=== PATIENT | male | born 1940 | race Caucasian/White ===

== ENCOUNTER 2024-04-04 09:57 | Inpatient (IN) | payer MEDICARE, SELFPAY ==
[2024-04-04] VITALS (20 sets, daily range): BP systolic 82–101; BP diastolic 64–84; PULSE 84–130; RESP 16–26; TEMP 36.2–36.6; O2SAT 90–99; BMI 33.4
--- NOTE | ~2024-04-04 | XR_ITS ---
XR chest 2V DATE: 04/04/2024 10:58 INDICATION: Tachycardia for several days. History of atrial fibrillation in the past. TECHNIQUE: PA and lateral views COMPARISON: None FINDINGS: No pulmonary infiltrate or consolidation is evident. There are some pleural calcifications suggesting prior asbestos exposure. Borderline heart size. Aortic calcification and unfolding. Osteopenia. Probable bilateral rotator cuff atrophy. 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
--- NOTE | 2024-04-04 10:08 | ECG_ITS ---
Test Date: 2024-04-04 10:13:06 Measurements Intervals [place] Rate: 116 P: 0 MT: 0 QRS: 68 QRSD: 126 T: -3 QT: 360 QTc: 501 Interpretive Statements ATRIAL FLUTTER/TACHYCARDIA WITH RAPID VENTRICULAR RESPONSE RIGHT BUNDLE BRANCH BLOCK [120+ ms QRS DURATION, UPRIGHT V1, 40+ ms S IN I/aVL/V4/V5/V6] No previous ECG available for comparison Electronically Signed On 04-05-2024 12:54:56 CDT by Ken Le M.D.
[2024-04-04 10:39] LABS: Basophils Absolute Auto 0.1 K/mm3 (0.0-0.1); Basophils Percent Auto 1.1 % (0.2-1.2); Eosinophils Absolute Auto 0.1 K/mm3 (0-0.3); Eosinophils Percent Auto 1.7 % (0-4.4); Hematocrit 43.9 % (42.0-52.0); Immature Granulocyte Absolute 0.03 K/mm3 (0.00-0.031); Immature Granulocyte Percent A 0.4 % (0-0.5); Lymphocytes Absolute Auto 1.58 K/mm3 (0.9-3.2); Lymphocytes Percent Auto 19.5 % (18.3-44.2); Mean Corpuscular HGB Conc 31.9 g/dl (32-36); Mean Corpuscular Hemoglobin 31.7 pg (26-34); Mean Corpuscular Volume 99.5 fl (80-100); Mean Platelet Volume 10.8 fl (7.4-10.4); Monocytes Absolute Auto 0.6 K/mm3 (0.1-0.6); Monocytes Percent Auto 7.9 % (2.6-8.5); Neutrophils Absolute Auto 5.6 K/mm3 (1.3-6.7); Neutrophils Percent Auto 69.4 % (45.5-73.1); Platelet Count Result 221 k/mm3 (150-375); Red Blood Count 4.41 M/mm3 (4.6-6.20); Red Cell Distribution Width 14.1 % (11.5-14.5); White Blood Count 8.1 K/mm3 (4.5-10.0)
[2024-04-04 10:49] LABS: Alanine Aminotransferase 18 U/L (6-50); Albumin Level 4.1 g/dL (3.5-5.1); Alkaline Phosphatase 61 U/L (38-126); Anion Gap 9 mmol/L (4-12); Aspartate Amino Transferase 24 U/L (17-59); Bilirubin,Total 0.9 mg/dL (0.2-1.3); Blood Urea Nitrogen 19 mg/dL (9-20); Calcium 9.1 mg/dL (8.4-10.2); Carbon Dioxide 24 mmol/L (22-30); Chloride 106 mmol/L (98-107); Estimated CRCL calculation 63 ml/min; Estimated Glomerular Filt Rate > 60; Glucose 111 mg/dL (65-110); Sodium 139 mmol/L (137-145)
[2024-04-04 10:54] LABS: INR 1.4; Prothrombin Time 17.4 Seconds (11.1-14.7)
[2024-04-04 10:55] LABS: Partial Thromboplastin Time 33.4 Seconds (22.3-36.8)
[2024-04-04] MEDS: SODIUM CHLORIDE 0.9% IV 1,000 ML 999 ML IV CONT (10:59)
[2024-04-04 11:12] LABS: NT Pro B Type Natriuretic Pept 1440 pg/mL (19.9-100); Troponin I 0.181 ng/mL (0.000-0.034)
--- NOTE | 2024-04-04 11:19 | ED.ARRPALP ---
HPI - Arrhythmia/Palpitations General Chief Complaint: Arrhythmia/Palpitations Stated Complaint: INCREASED HEART RATE Time Seen by Provider: 04/04/24 10:10 History of Present Illness HPI narrative: patient is an 84-year-old male who presents ER with elevated heart rate for last 2 days. He takes amiodarone for rate control. 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 He has no palpitations or shortness of breath or weakness. His blood pressure typically runs in the mid upper 90s and low 100s. Not typically never higher than 110 mm Hg. He also typically has a heart rate in the 60s. Currently tachy at 1:30 a.m. and irregular. Related Data Home Medications Medication Instructions Recorded Confirmed allopurinol 300 mg tablet 300 mg PO DAILY 04/04/24 04/04/24 amiodarone 200 mg tablet 100 mg PO DAILY 04/04/24 04/04/24 apixaban 5 mg tablet (Eliquis) 5 mg PO Q12H 04/04/24 04/04/24 atorvastatin 20 mg tablet 20 mg PO HS 04/04/24 04/04/24 diazepam 2 mg tablet 2 mg PO DAILY PRN Anxiety 04/04/24 04/04/24 finasteride 5 mg tablet 5 mg PO HS 04/04/24 04/04/24 glucosamine-chondroitin 250 mg-200 1 tablet PO DAILY 04/04/24 04/04/24 mg tablet (Osteo Bi-Flex) metformin 500 mg tablet 500 mg PO HS 04/04/24 04/04/24 spironolactone 25 mg tablet 25 mg PO DAILY 04/04/24 04/04/24 tamsulosin 0.4 mg capsule 0.4 mg PO HS 04/04/24 04/04/24 Allergies Allergy/AdvReac Type Severity Reaction Status Date / Time No Known Allergies Allergy Verified 04/04/24 14:59 Review of Systems Review of Systems: All systems reviewed & are unremarkable except as noted in HPI and below Constitutional: Constitutional: Reports no additional constitutional complaints ENT: Reports system reviewed and no additional complaints, except as documented Cardiovascular: Cardiovascular: Denies chest pain, Reports rapid heart rate, Denies radiating jaw, neck or arm pain and Denies slow heart rate Respiratory: Respiratory: Reports no additional respiratory complaints Gastrointestinal: Gastrointestinal: Reports no additional gastrointestinal complaints Musculoskeletal: Musculoskeletal: Reports no additional musculoskeletal complaints [facility] Past Medical History Medical History (Updated 04/04/24 @ 20:22 by Romie Elkins MD) Benign prostatic hyperplasia Chronic anticoagulation Gout Hyperlipidemia Paroxysmal atrial fibrillation Type 2 diabetes mellitus Family History Family History Other Unknown family medical history Social History Social History (Updated 04/04/24 @ 15:06 by Lottie Mao PA-C) Social History: Surrogate medical decision maker: Graciela Nieto, spouse. Code status: Full code. Smoking packs per day: 2 Smoking cigarettes per day: 40.0 Years smoked: 20 Smoking pack-years: 40.00 Smoking status: Former smoker Tobacco type: cigarettes Smoking end date: 10/21/97 Alcohol intake: never Substance use: never Do You Feel Safe in your Home?: Yes Lack of Transportation: No Lack of Food: Never True Current Housing: I Have Housing Concerned About Future Housing: No Difficulty Paying Gas/Electric Bills: No Difficulty Paying for Meds: No Currently Unemployed: No Education: High School Diploma/GED Difficulty w/ Childcare or Family Care: No Spiritual care concerns: No Exam Narrative: GENERAL: Well-appearing, Obese, and in no acute distress. HEAD: Normocephalic, atraumatic. ENT: Mucous membranes moist. NECK: Supple. CHEST: Clear to auscultation. No respiratory distress. HEART: irregularly irregular rate and rhythm that is tachycardic.. Normal peripheral pulses. ABDOMEN: Soft, nontender, nondistended. EXTREMITIES: Normal range of motion. 2+ edema. SKIN: Warm, dry, no rash. NEURO: Alert and oriented x3. PSYCH: Normal mood and affect. Course Course Emergency Course: Admit to hospitalist service. Cardiology consulted and recommends o
[2024-04-04] MEDS: DIGOXIN TAB 125 MCG TABLET PO (12:07)
--- NOTE | 2024-04-04 14:10 | ADMGEN ---
This patient, Drew Nieto, was admitted to IMU Room 200-01. Patient/family oriented to hospital policies and general routines including ID bracelet, bed and alarms, visiting hours, pain management, procedures, bathroom and other care routines, personal items, smoking policy, room service/diet, and visiting hours. Information on how to activate the Rapid Response Team has been discussed. Patient/Family are encouraged to report perceived risks to care and to ask questions if they do not understand what they are told or what they should do.
--- NOTE | 2024-04-04 15:00 | PM.IMHP ---
H&P: HPI History of Present Illness Date/Time: 04/04/24 15:00 Chief Complaint: Increased heart rate. Narrative: This is a pleasant 84-year-old male with paroxysmal atrial fibrillation maintained on amiodarone on chronic anticoagulation with apixaban, hyperlipidemia, benign prostatic hyperplasia, type 2 diabetes mellitus, and gout who presented to the emergency department via private vehicle for evaluation of increased heart rate. The patient and his drove up here from [place] 3 weeks ago to visit friends and family. He has been feeling good and able to participate in all activities. He has noticed the last several days that his heart rate has been high and his smart watch notified him of that. His baseline heart rate is in the mid 60s and he has noticed that his heart rate has been in the 90s to upwards of 120s. He does not have any symptoms of that and specifically denies fatigue, fluttering, racing heart, palpitations, chest pain, pleuritic pain, shortness a breath, syncope, near syncope, nausea, vomiting, and sweats. He has not had any change in medications recently and he has not missed any of his medications. He has not had any alcohol consumption he denies significant caffeine use. In the ED: He was afebrile on arrival. Blood pressures have been at the low end of normal which he states is per usual. Heart rate has ranged from 99 to 130 and EKG shows atrial flutter/tachycardia without acute ST segment changes and a right bundle-branch block. CMP and CBC were pretty unremarkable. ProBNP was 1440. Initial troponin was 0.181. Chest x-ray showed calcified pleural plaques, aortic atherosclerosis, and osteopenia without evidence of active pulmonary disease. He is being admitted in this setting for close monitoring and Cardiology consultation. Review of Systems Review of Systems: 12 systems were reviewed and are negative except for as per HPI. [facility] Past Medical History Medical History (Updated 04/05/24 @ 02:15 by Lottie Mao PA-C) Benign prostatic hyperplasia Chronic anticoagulation Gout Hyperlipidemia Obstructive sleep apnea on CPAP Paroxysmal atrial fibrillation Type 2 diabetes mellitus Surgical History Surgical History (Updated 04/05/24 @ 02:15 by Lottie Mao PA-C) History of arthroplasty of left knee History of cardiac radiofrequency ablation History of cataract extraction History of cystoscopy History of hernia repair History of total right hip arthroplasty Family History Family History Other Unknown family medical history Social History Social History (Updated 04/05/24 @ 02:16 by Lottie Mao PA-C) Social History: Surrogate medical decision maker: Graciela Nieto, spouse. Code status: Full code. Smoking packs per day: 2 Smoking cigarettes per day: 40.0 Years smoked: 20 Smoking pack-years: 40.00 Smoking status: Former smoker Tobacco type: cigarettes Smoking end date: 10/21/97 Alcohol intake: never Substance use: never Do You Feel Safe in your Home?: Yes Lack of Transportation: No Lack of Food: Never True Current Housing: I Have Housing Concerned About Future Housing: No Difficulty Paying Gas/Electric Bills: No Difficulty Paying for Meds: No Currently Unemployed: No Education: High School Diploma/GED Difficulty w/ Childcare or Family Care: No Additional living arrangements comments: Lives with in [place]. Additional occupation/education comments: Retired from [employer]. Spiritual care concerns: No Meds Home Medications and Allergies Home Medications Medication Instructions Recorded Confirmed Type allopurinol 300 mg tablet 300 mg PO DAILY 04/04/24 04/04/24 History amiodarone 200 mg tablet 100 mg PO DAILY 04/04/24 04/04/24 History apixaban 5 mg tablet (Eliquis) 5 mg PO Q12H 04/04/24 04/04/24 History atorvastatin 20 mg tablet 20 mg PO HS 04/04/24 04/04/24 Hi
--- NOTE | 2024-04-04 15:18 | ECHO_ITS ---
Patient Info Name: Drew Nieto Age: 84 years : 1940 Gender: Male Ht: 71 in Wt: 239 lbs BSA: 2.36 m2 HR: 110 bpm BP: 93 / 75 mmHg Technical Quality: Fair Exam Date: 04/04/2024 4:12 PM Exam Location: Echo Lab Patient Status: Inpatient Admit Date: 04/04/2024 Staff Ordering Physician: Lottie Mao PA-C Supervisor Edging: Estuardo Castorena RDCS Attending Provider: Nikhil Eller MD Referring Physician: Daylin BISHOP; Exam Type: CA echo doppler color flow Study Info Indications - atrial tachycardia - elevated trop Complete two-dimensional, color flow and Doppler transthoracic echocardiogram is performed. Summary 1. Complete two-dimensional, color flow and Doppler transthoracic echocardiogram is performed. 2. Left ventricular chamber dimension is normal. 3. Left ventricular systolic function is normal, estimated at 60-65%. 4. There is mild concentric increased left ventricular wall thickness. 5. The left ventricular diastolic function is grade III diastolic dysfunction. 6. E/e' 14 is mildly elevated. 7. Right ventricular chamber dimension is moderately enlarged. 8. Right ventricular systolic function is moderately reduced and with abnormal TAPSE 1.0 cm. 9. Left atrial chamber dimension is moderately enlarged. 10. Right atrial chamber dimension is mildly enlarged. 11. The aortic valve is not well visualized due to severe calcifications. Cannot determine number of aortic valve leaflets.. 12. There is severe aortic valve sclerosis. 13. There is moderate to severe aortic valve stenosis based on a peak velocity of 358 cm/s, mean gradient of 32 mmHg, and aortic valve area of 1.0 cm2. 14. Mild pulmonary hypertension, estimated pulmonary arterial systolic pressure is 48 mmHg. 15. The aortic root size at the sinus of Valsalva is borderline dilated at 3.9 cm. 16. The prox ascending aorta size is borderline dilated at 3.9 cm. 17. Dilated inferior vena cava with >50% collapse upon inspiration consistent with elevated right atrial pressure, 10 mmHg. Left Ventricle E/e' 14 is mildly elevated. Left ventricular chamber dimension is normal. Left ventricular systolic function is normal, estimated at 60-65%. There is mild concentric increased left ventricular wall thickness. The left ventricular diastolic function is grade III diastolic dysfunction. Right Ventricle Right ventricular systolic function is moderately reduced and with abnormal TAPSE 1.0 cm. Right ventricular chamber dimension is moderately enlarged. Left Atria Left atrial chamber dimension is moderately enlarged. Right Atria Right atrial chamber dimension is mildly enlarged. Aortic Valve There is moderate to severe aortic valve stenosis based on a peak velocity of 358 cm/s, mean gradient of 32 mmHg, and aortic valve area of 1.0 cm2. The aortic valve is not well visualized due to severe calcifications. Cannot determine number of aortic valve leaflets.. There is severe aortic valve sclerosis. There is no aortic valve regurgitation. Pulmonic Valve There is no pulmonic regurgitation. Mitral Valve There is no mitral valve stenosis. There is no mitral valve regurgitation. Tricuspid Valve There is no tricuspid valve regurgitation. Mild pulmonary hypertension, estimated pulmonary arterial systolic pressure is 48 mmHg. Pericardium/Pleural There is no pericardial effusion. Inferior Vena Cava Dilated inferior vena cava with >50% collapse upon inspiration consistent with elevated right atrial pressure, 10 mmHg. Aorta The aortic root size at the sinus of Valsalva is borderline dilated at 3.9 cm.
[2024-04-04 15:24] LABS: Troponin I 0.197 ng/mL (0.000-0.034)
[2024-04-04 16:56] LABS: Hemoglobin A1C 5.7 % (<5.7)
[2024-04-04 18:49] LABS: Troponin I 0.174 ng/mL (0.000-0.034)
[2024-04-04 20:28] LABS: Glucose Point of Care 126 mg/dl (65-105)
[2024-04-04] MEDS: APIXABAN 5 MG TABLET PO (20:52)
[2024-04-04] MEDS: FINASTERIDE 5 MG TABLET PO (20:53)
[2024-04-04] MEDS: metFORMIN HCL 500 MG TABLET PO (20:53)
[2024-04-04] MEDS: ATORVASTATIN 20 MG TABLET PO (20:53)
[2024-04-04] MEDS: TAMSULOSIN HCL 0.4 MG CAPSULE PO (20:53)
[2024-04-05] VITALS (23 sets, daily range): BP systolic 83–112; BP diastolic 47–82; PULSE 61–128; RESP 10–20; TEMP 36.1–36.9; O2SAT 96–98
[2024-04-05 04:54] LABS: Anion Gap 7 mmol/L (4-12); Blood Urea Nitrogen 17 mg/dL (9-20); Calcium 8.6 mg/dL (8.4-10.2); Carbon Dioxide 27 mmol/L (22-30); Chloride 107 mmol/L (98-107); Estimated CRCL calculation 65 ml/min; Estimated Glomerular Filt Rate > 60; Glucose 121 mg/dL (65-110); Magnesium 2.1 mg/dL (1.6-2.3); Potassium 3.8 mmol/L (3.4-5.0); Sodium 141 mmol/L (137-145)
--- NOTE | 2024-04-05 07:51 | PM.IMPN ---
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 He states many years ago he had ablations x2 and a cardioversion. Following the cardioversion he was started on amiodarone and the Afib has been well controlled since then. Patient remains asymptomatic on exam with HR 110-120s. - EKG 04/04: Atrial flutter/tachycardia with RVR - Medication: Continue amiodarone 100 mg daily and Eliquis 5 mg BID. Patient received Digoxin 125 mcg x1 with little benefit. - Telemetry - Keep serum potassium >4 and keep magnesium >2 - Consult Cardiology for further management, appreciate assistance and recommendations Amiodarone increased from 100 mg to 200 mg daily Started metoprolol 12.5 mg QID Continue Eliquis 5 mg BID Echo to evaluate LV function and valves, read pending. If unremarkable consider stress test after rate controlled. If tachycardia persists possibly cardioversion tomorrow (2) Elevated troponin: Code(s): R79.89 - Other specified abnormal findings of blood chemistry Status: Acute Assessment and Plan: Troponin elevated to 0.197 on admission likely demand ischemia secondary to afib RVR. Downtrending on follow up labs. 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 DVT ppx with apixaban 5 mg BID. - Continue home medication (4) Hyperlipidemia: Code(s): E78.5 - Hyperlipidemia, unspecified Status: Acute Assessment and Plan: Chronic, continue home medications. - atorvastatin 20 mg daily (5) Benign prostatic hyperplasia: Code(s): N40.0 - Benign prostatic hyperplasia without lower urinary tract symptoms Status: Acute Assessment and Plan: Chronic, continue home medications. - Tamsulosin 0.4 mg daily (6) Type 2 diabetes mellitus: Code(s): E11.9 - Type 2 diabetes mellitus without complications Status: Acute Assessment and Plan: - hypoglycemia protocol - POC blood glucose ACHS - home medication - metformin - correct regimen ordered - low dose TIDWM - A1C 5.7 (7) Obstructive sleep apnea on CPAP: Code(s): G47.33 - Obstructive sleep apnea (adult) (pediatric) Status: Acute Assessment and Plan: Chronic, continue CPAP use during admission. Time Spent With Patient Time with patient: 25 - 35 minutes Subjective Date/time seen: 04/05/24 07:51 Interval history: 84-year-old male with paroxysmal atrial fibrillation maintained on amiodarone on chronic anticoagulation with apixaban, hyperlipidemia, benign prostatic hyperplasia, type 2 diabetes mellitus, and gout who presented to the emergency department via private vehicle for evaluation of increased heart rate. Patient pleasant lying comfortably in bed. He remains asymptomatic at this denying chest pain, palpitations, shortness of breath. Despite continuing his amiodarone and receiving the 1 time dose of digoxin in the ED he remained tachycardic into the 110-120s. Patient evaluated by Cardiology and started on metoprolol 12.5 mg q.i.d. Since receiving the metoprolol patient's blood pressure has improved but he remains tachycardic. Echo obtained, read pending. If echo is unremarkable possible stress test tomorrow. If patient remains tachycardic cardiology considering cardioversion tomorrow. Patient concerned that his insurance will not cover this admission as hospital is out of network. Care coordination consulted and state that since this is emergent insurance will likely cover and gave information if they do not. Review of Systems Review of Systems: All systems reviewed & are unremarkable except as noted in HPI and below Exam Narrative: AF HR 120 RR 16 SpO2 97 BP
[2024-04-05 08:12] LABS: Glucose Point of Care 117 mg/dl (65-105)
[2024-04-05] MEDS: AMIODARONE HCL 100 MG TABLET PO (09:02)
[2024-04-05] MEDS: allopurinoL 300 MG TABLET PO (09:03)
[2024-04-05] MEDS: APIXABAN 5 MG TABLET PO ×2 (09:03→20:22)
[2024-04-05] MEDS: diazePAM (*CRX) 2 MG TABLET PO (09:07)
[2024-04-05] MEDS: SPIRONOLACTONE 25 MG TABLET PO (11:44)
--- NOTE | 2024-04-05 11:49 | PM.CNCAR ---
Assessment and Plan Assessment and plan (1) Atrial fibrillation with rapid ventricular response: Code(s): I48.91 - Unspecified atrial fibrillation Status: Acute Plan AFib with RVR, persistent History of AFib ablation History of mild aortic stenosis Elevated cardiac enzymes likely demand ischemia Plan Amiodarone infusion overnight and changed to amiodarone 200 mg daily after completing the infusion If still persistent tachycardia consider cardioversion tomorrow Add metoprolol 12.5 mg QID Low blood pressure does not permit for adding high doses of rate-controlling agents Trans echocardiogram to evaluate for aortic stenosis and LV function If the echocardiogram is unremarkable will consider stress test for evaluation of elevated cardiac enzymes, after heart rate control Continue oral anticoagulation History of Present Illness History of Present Illness Consult date/time: 04/05/24 11:49 Reason For Visit: afib rvr Narrative: Patient presented to the hospital because of noted tachycardia. Patient regularly check his heart rate every morning and last 4 days he has noted his heart rate has been 120 and his baseline heart rate usually in the 60s. Patient did not feel any chest pain shortness of breath. He has history of atrial fibrillation and prior ablation and cardioversion. Last episode of atrial fibrillation was 10 years ago. His atrial fibrillation episodes have become less frequent since he was diagnosed with sleep apnea study using CPAP. He has been compliant with his medication oral anticoagulation and have not been missing any med doses recently. He has also been compliant with his CPAP Review of Systems Review of Systems: All systems reviewed & are unremarkable except as noted in HPI and below PMFSH Past Medical History Medical History (Updated 04/05/24 @ 02:15 by Lottie Mao PA-C) Benign prostatic hyperplasia Chronic anticoagulation Gout Hyperlipidemia Obstructive sleep apnea on CPAP Paroxysmal atrial fibrillation Type 2 diabetes mellitus Surgical History Surgical History (Updated 04/05/24 @ 02:15 by Lottie Mao PA-C) History of arthroplasty of left knee History of cardiac radiofrequency ablation History of cataract extraction History of cystoscopy History of hernia repair History of total right hip arthroplasty Family History Family History Other Unknown family medical history Social History Social History (Updated 04/05/24 @ 02:16 by Lottie Mao PA-C) Social History: Surrogate medical decision maker: Graciela Nieto, spouse. Code status: Full code. Smoking packs per day: 2 Smoking cigarettes per day: 40.0 Years smoked: 20 Smoking pack-years: 40.00 Smoking status: Former smoker Tobacco type: cigarettes Smoking end date: 10/21/97 Alcohol intake: never Substance use: never Do You Feel Safe in your Home?: Yes Lack of Transportation: No Lack of Food: Never True Current Housing: I Have Housing Concerned About Future Housing: No Difficulty Paying Gas/Electric Bills: No Difficulty Paying for Meds: No Currently Unemployed: No Education: High School Diploma/GED Difficulty w/ Childcare or Family Care: No Additional living arrangements comments: Lives with in [place]. Additional occupation/education comments: Retired from [employer]. Spiritual care concerns: No Meds Home Medications and Allergies Home Medications Medication Instructions Recorded Confirmed Type allopurinol 300 mg tablet 300 mg PO DAILY 04/04/24 04/04/24 History amiodarone 200 mg tablet 100 mg PO DAILY 04/04/24 04/04/24 History apixaban 5 mg tablet (Eliquis) 5 mg PO Q12H 04/04/24 04/04/24 History atorvastatin 20 mg tablet 20 mg PO HS 04/04/24 04/04/24 History diazepam 2 mg tablet 2 mg PO DAILY PRN Anxiety 04/04/24 04/04/24 History finasteride 5 mg tablet 5 mg PO HS 04/04/24 06
[2024-04-05 12:29] LABS: Glucose Point of Care 147 mg/dl (65-105)
[2024-04-05] MEDS: METOPROLOL TARTRATE 12.5 MG TABLET PO ×3 (12:46→20:22)
[2024-04-05] MEDS: AMIODARONE 150 MG/D5W 100 ML 150 MG/100 ML BAG 600 MG IV CONT (12:46)
[2024-04-05] MEDS: AMIODARONE 360 MG/D5W 200 ML 360 MG/200 ML BAG 33.33 MG IV CONT (12:59)
[2024-04-05 16:53] LABS: Glucose Point of Care 106 mg/dl (65-105)
[2024-04-05] MEDS: AMIODARONE 360 MG/D5W 200 ML 360 MG/200 ML BAG 16.67 MG IV CONT (18:58)
[2024-04-05] MEDS: metFORMIN HCL 500 MG TABLET PO (20:22)
[2024-04-05] MEDS: TAMSULOSIN HCL 0.4 MG CAPSULE PO (20:22)
[2024-04-05] MEDS: FINASTERIDE 5 MG TABLET PO (20:22)
[2024-04-05] MEDS: ATORVASTATIN 20 MG TABLET PO (20:22)
[2024-04-05 21:18] LABS: Glucose Point of Care 131 mg/dl (65-105)
[2024-04-06] VITALS (24 sets, daily range): BP systolic 81–98; BP diastolic 48–74; PULSE 72–116; RESP 18–20; TEMP 36.3–36.8; O2SAT 90–99
[2024-04-06] MEDS: AMIODARONE 360 MG/D5W 200 ML 360 MG/200 ML BAG 16.67 MG IV CONT (07:00)
[2024-04-06 07:16] LABS: Basophils Absolute Auto 0.1 K/mm3 (0.0-0.1); Basophils Percent Auto 0.9 % (0.2-1.2); Eosinophils Absolute Auto 0.2 K/mm3 (0-0.3); Eosinophils Percent Auto 2.6 % (0-4.4); Hematocrit 43.3 % (42.0-52.0); Hemoglobin 13.7 g/dL (14.0-18.0); Immature Granulocyte Absolute 0.03 K/mm3 (0.00-0.031); Immature Granulocyte Percent A 0.4 % (0-0.5); Lymphocytes Absolute Auto 1.68 K/mm3 (0.9-3.2); Lymphocytes Percent Auto 20.6 % (18.3-44.2); Mean Corpuscular HGB Conc 31.6 g/dl (32-36); Mean Corpuscular Hemoglobin 32.2 pg (26-34); Mean Corpuscular Volume 101.6 fl (80-100); Mean Platelet Volume 10.6 fl (7.4-10.4); Monocytes Absolute Auto 0.6 K/mm3 (0.1-0.6); Neutrophils Absolute Auto 5.6 K/mm3 (1.3-6.7); Neutrophils Percent Auto 68.5 % (45.5-73.1); Platelet Count Result 204 k/mm3 (150-375); Red Blood Count 4.26 M/mm3 (4.6-6.20); Red Cell Distribution Width 14.5 % (11.5-14.5); White Blood Count 8.2 K/mm3 (4.5-10.0)
[2024-04-06 07:26] LABS: Alanine Aminotransferase 17 U/L (6-50); Albumin Level 3.9 g/dL (3.5-5.1); Alkaline Phosphatase 61 U/L (38-126); Anion Gap 8 mmol/L (4-12); Aspartate Amino Transferase 23 U/L (17-59); Bilirubin,Total 0.5 mg/dL (0.2-1.3); Blood Urea Nitrogen 22 mg/dL (9-20); Calcium 8.3 mg/dL (8.4-10.2); Carbon Dioxide 27 mmol/L (22-30); Chloride 104 mmol/L (98-107); Estimated CRCL calculation 58 ml/min; Estimated Glomerular Filt Rate > 60; Glucose 116 mg/dL (65-110); Potassium 3.9 mmol/L (3.4-5.0); Sodium 139 mmol/L (137-145)
[2024-04-06 08:40] LABS: Glucose Point of Care 146 mg/dl (65-105)
--- NOTE | 2024-04-06 08:48 | PM.PNCARD ---
Progress Note: A&P Assessment and Plan (1) Atrial fibrillation with rapid ventricular response: Code(s): I48.91 - Unspecified atrial fibrillation Status: Acute Assessment and Plan: Presents with AF RVR, per patient has not had an episode of AF for ~10 years History of AFib ablation History of mild aortic stenosis Elevated cardiac enzymes likely demand ischemia Plan Rate controlled on IV amiodarone. Will shift to p.o. amiodarone 400mg b.i.d. Will monitor on telemetry for another 24 hours and if he remains rate controlled, d/c tomorrow on lower dose of amiodarone to be further decreased as an outpatient by his established pie maker Discussed option of DCCV with patient and , but they would like to avoid that and are comfortable with plan for rate control Continue metoprolol 12.5mg QID. This can be shifted to Toprol XL at discharge for dosing convenience Continue oral anticoagulation Echo showed normal LVSF, EF 60-65%, grade III diastolic dysfunction, severe aortic valve sclerosis with moderate to severe aortic stenosis, peak velocity of 358 cm/s, mean gradient of 32 mmHg, and aortic valve area of 1.0cm2. Patient is traveling here from [place] where he has an established pie maker who he will schedule close follow up with for his and atrial fibrillation. (2) Aortic stenosis: Code(s): I35.0 - Nonrheumatic aortic (valve) stenosis Status: Acute Assessment and Plan: As above, moderate to severe. Outpatient follow up. (3) Diastolic dysfunction without heart failure: Code(s): I51.89 - Other ill-defined heart diseases Status: Acute Assessment and Plan: No signs of decompensated heart failure at this point. Plan Subjective Date/time seen: 04/06/24 08:48 Interval history: Cardiology follow up for atrial fibrillation Heart rate has been controlled over the past 12 hours on telemetry. He is asymptomatic. Denies palpitations, chest pain, shortness of breath. Review of Systems Review of Systems: All systems reviewed & are unremarkable except as noted in HPI and below Exam Const: General: comfortable and no acute distress Other: Able to lie flat HENMT: Face/Nose/Sinus: Normal nares present and no epistaxis Mouth: Yes moist mucous membranes Eyes: Sclera: sclerae normal Pupils: Equal, round and reactive pupils present Neck: Neck: supple and no JVD Carotids: no bruits Resp: Auscultation: clear to auscultation bilaterally and lung sounds not diminished Other: No chest wall tenderness Cardio: Rate: regular rate Rhythm: abnormal rhythm irregularly irregular Heart sounds: no gallops, Murmur heart sound present systolic (Ejection systolic murmur) and no rubs GI: Auscultation: normal bowel sounds Skin: General skin exam: normal color, rashes and/or lesions noted and no erythema Other: Warm Neuro: Cranial nerves: Yes Equal, round and reactive pupils present Speech: normal speech Other: No obvious focal deficit or facial asymmetry Extrem: General: edema (mild bilateral pretibial and pedal edema) Other: Normal capillary refills Intact distal pulses. Objective Data Vital Signs Vital Signs: Vital Signs - 24 hr 04/05/24 09:02 04/05/24 12:00 04/05/24 12:46 Temperature 36.9 C Pulse Rate 116 H 117 H 123 H Respiratory Rate 16 Blood Pressure 89/65 L Pulse Oximetry 97 Oxygen Delivery 04/05/24 12:46 04/05/24 12:59 04/05/24 12:57 Temperature Pulse Rate 123 H 120 H 120 H Respiratory Rate Blood Pressure 112/82 112/82 Pulse Oximetry Oxygen Delivery 04/05/24 12:00 04/05/24 16:00 04/05/24 10:00 Temperature 36.4 C L Pulse Rate 96 123 H Respiratory Rate 16 Blood Pressure 103/81 Pulse Oximetry 98 Oxygen Delivery Room Air 04/05/24 12:00 04/05/24 14:00 04/05/24 16:00 Temperature Pulse Rate 114 H 102 H 96 Respiratory Rate Blood Pressure Pulse
[2024-04-06] MEDS: allopurinoL 300 MG TABLET PO (09:28)
[2024-04-06] MEDS: APIXABAN 5 MG TABLET PO ×2 (09:28→19:56)
[2024-04-06] MEDS: METOPROLOL TARTRATE 12.5 MG TABLET PO ×3 (09:28→19:55)
[2024-04-06] MEDS: SPIRONOLACTONE 25 MG TABLET PO (09:28)
--- NOTE | 2024-04-06 11:34 | PM.IMPN ---
Progress Note: A&P Assessment and Plan (1) Atrial fibrillation with rapid ventricular response: Code(s): I48.91 - Unspecified atrial fibrillation Status: Acute Assessment and Plan: Patient follows a program clerk in [place]. He states many years ago he had ablations x2 and a cardioversion. Following the cardioversion he was started on amiodarone and the Afib has been well controlled since then. Patient remains asymptomatic on exam with HR 110-120s. - EKG 04/04: Atrial flutter/tachycardia with RVR - Medication: Continue amiodarone 100 mg daily and Eliquis 5 mg BID. Patient received Digoxin 125 mcg x1 with little benefit. - Telemetry - Keep serum potassium >4 and keep magnesium >2 - Consult Cardiology for further management, appreciate assistance and recommendations Patient is rate controlled on IV amiodarone and PO metoprolol. Patient will be transitioned to PO 400 mg amiodarone BID. If he remains rate controlled likely able to DC tomorrow Continue metoprolol 12.5 mg QID, will change this to XR at discharge Continue Eliquis 5 mg BID Echo EF 60-65%, grade III diastolic dysfunction, severe aortic valve sclerosis with moderate to severe aortic stenosis, peak velocity of 358 cm/s, mean gradient of 32 mmHg, and aortic valve area of 1.0cm2. (2) Elevated troponin: Code(s): R79.89 - Other specified abnormal findings of blood chemistry Status: Acute Assessment and Plan: Troponin elevated to 0.197 on admission likely demand ischemia secondary to afib RVR. Downtrending on follow up labs. (3) Chronic anticoagulation: Code(s): Z79.01 - correction (current) use of anticoagulants Status: Acute Assessment and Plan: Patient has paroxysmal atrial fibrillation. DVT ppx with apixaban 5 mg BID. - Continue home medication (4) Hyperlipidemia: Code(s): E78.5 - Hyperlipidemia, unspecified Status: Acute Assessment and Plan: Chronic, continue home medications. - atorvastatin 20 mg daily (5) Benign prostatic hyperplasia: Code(s): N40.0 - Benign prostatic hyperplasia without lower urinary tract symptoms Status: Acute Assessment and Plan: Chronic, continue home medications. - Tamsulosin 0.4 mg daily (6) Type 2 diabetes mellitus: Code(s): E11.9 - Type 2 diabetes mellitus without complications Status: Acute Assessment and Plan: - hypoglycemia protocol - POC blood glucose ACHS - home medication - metformin - correct regimen ordered - low dose TIDWM - A1C 5.7 (7) Obstructive sleep apnea on CPAP: Code(s): G47.33 - Obstructive sleep apnea (adult) (pediatric) Status: Acute Assessment and Plan: Chronic, continue CPAP use during admission. Time Spent With Patient Time with patient: 25 - 35 minutes Subjective Date/time seen: 04/06/24 11:34 Interval history: 84-year-old male with paroxysmal atrial fibrillation maintained on amiodarone on chronic anticoagulation with apixaban, hyperlipidemia, benign prostatic hyperplasia, type 2 diabetes mellitus, and gout who presented to the emergency department via private vehicle for evaluation of increased heart rate. Patient is pleasant sitting up on the side of the bed eating lunch. He remains asymptomatic at this time. HRs in the 90s to 100s. He was evaluated by cardiology plan is for patient to be transitioned to PO 400 mg amiodarone BID. If he remains rate controlled likely able to DC tomorrow. He has no complaints at this time. Review of Systems Review of Systems: All systems reviewed & are unremarkable except as noted in HPI and below Exam Narrative: AF HR 95 RR 20 SpO2 99 BP 91/65 General: male in no acute respiratory distress who is nontoxic appearing, lying semi recumbent in bed. HEENT: Normocephalic. Atraumatic. Pupils equal round reactive to light. Extraocular movement intact. Sclera clear and anicteric. No facial asymmetry. Chest: Lungs are clear to auscultatio
[2024-04-06 12:14] LABS: Glucose Point of Care 97 mg/dl (65-105)
[2024-04-06 16:00] LABS: Glucose Point of Care 101 mg/dl (65-105)
[2024-04-06] MEDS: AMIODARONE HCL 200 MG TABLET 400 MG PO (17:36)
[2024-04-06] MEDS: metFORMIN HCL 500 MG TABLET PO (19:56)
[2024-04-06] MEDS: ATORVASTATIN 20 MG TABLET PO (19:56)
[2024-04-06] MEDS: FINASTERIDE 5 MG TABLET PO (19:56)
[2024-04-06] MEDS: TAMSULOSIN HCL 0.4 MG CAPSULE PO (19:57)
[2024-04-06 20:41] LABS: Glucose Point of Care 162 mg/dl (65-105)
[2024-04-07] VITALS (15 sets, daily range): BP systolic 83–110; BP diastolic 53–69; PULSE 70–120; RESP 17–20; TEMP 35.9–36.7; O2SAT 95–97
[2024-04-07 05:23] LABS: Basophils Absolute Auto 0.1 K/mm3 (0.0-0.1); Basophils Percent Auto 0.9 % (0.2-1.2); Eosinophils Absolute Auto 0.2 K/mm3 (0-0.3); Eosinophils Percent Auto 2.8 % (0-4.4); Hematocrit 40.6 % (42.0-52.0); Immature Granulocyte Absolute 0.04 K/mm3 (0.00-0.031); Immature Granulocyte Percent A 0.5 % (0-0.5); Lymphocytes Absolute Auto 1.93 K/mm3 (0.9-3.2); Lymphocytes Percent Auto 23.6 % (18.3-44.2); Monocytes Absolute Auto 0.6 K/mm3 (0.1-0.6); Monocytes Percent Auto 7.6 % (2.6-8.5); Neutrophils Absolute Auto 5.3 K/mm3 (1.3-6.7); Neutrophils Percent Auto 64.6 % (45.5-73.1); Platelet Count Result 213 k/mm3 (150-375); Red Blood Count 4.06 M/mm3 (4.6-6.20); White Blood Count 8.2 K/mm3 (4.5-10.0)
[2024-04-07 05:37] LABS: Alanine Aminotransferase 18 U/L (6-50); Albumin Level 3.8 g/dL (3.5-5.1); Alkaline Phosphatase 65 U/L (38-126); Anion Gap 6 mmol/L (4-12); Aspartate Amino Transferase 29 U/L (17-59); Bilirubin,Total 0.9 mg/dL (0.2-1.3); Blood Urea Nitrogen 20 mg/dL (9-20); Calcium 8.6 mg/dL (8.4-10.2); Carbon Dioxide 28 mmol/L (22-30); Chloride 106 mmol/L (98-107); Estimated CRCL calculation 59 ml/min; Estimated Glomerular Filt Rate > 60; Glucose 106 mg/dL (65-110); Sodium 140 mmol/L (137-145)
[2024-04-07 07:51] LABS: Glucose Point of Care 108 mg/dl (65-105)
[2024-04-07] MEDS: allopurinoL 300 MG TABLET PO (09:05)
[2024-04-07] MEDS: APIXABAN 5 MG TABLET PO (09:05)
[2024-04-07] MEDS: AMIODARONE HCL 200 MG TABLET 400 MG PO (09:05)
--- NOTE | 2024-04-07 10:05 | PC.NURSE ---
1005- patients BP at 0800 was 87/53 HR 87. At 0900 pts HR was 119, orders to hold metoprolol if SBP <90 and hold spironolactone if SBP <105. Spoke with Mariza Rico NP patients BP rechecked at 1000 83/57. Verbal orders to not give metoprolol or spironolactone.
--- NOTE | 2024-04-07 10:29 | PM.PNCARD ---
Progress Note: A&P Assessment and Plan (1) Atrial fibrillation with rapid ventricular response: Code(s): I48.91 - Unspecified atrial fibrillation Status: Acute Assessment and Plan: Presents with AF RVR, per patient has not had an episode of AF for ~10 years History of AFib ablation History of mild aortic stenosis Elevated cardiac enzymes likely demand ischemia Plan Continue p.o. amiodarone 400mg b.i.d. Amiodarone to be further decreased as an outpatient by his established cad manager, do not anticipate half-way use of oral amiodarone. Continue metoprolol 12.5mg QID. This can be shifted to Toprol XL at discharge for dosing convenience Continue oral anticoagulation Echo showed normal LVSF, EF 60-65%, grade III diastolic dysfunction, severe aortic valve sclerosis with moderate to severe aortic stenosis, peak velocity of 358 cm/s, mean gradient of 32 mmHg, and aortic valve area of 1.0cm2. Patient is traveling here from [place] where he has an established cad manager who he will schedule close follow up with for his and atrial fibrillation. (2) Aortic stenosis: Code(s): I35.0 - Nonrheumatic aortic (valve) stenosis Status: Acute Assessment and Plan: As above, moderate to severe. Outpatient follow up. (3) Diastolic dysfunction without heart failure: Code(s): I51.89 - Other ill-defined heart diseases Status: Acute Assessment and Plan: No signs of decompensated heart failure at this point. Plan Subjective Date/time seen: 04/07/24 10:29 Interval history: Cardiology follow up for atrial fibrillation Heart rate has been controlled over the past 12 hours on telemetry. He is asymptomatic. Denies palpitations, chest pain, shortness of breath. Date of service 04/07/2024: Remains rate controlled on p.o. amiodarone and is feeling well this morning. He has no cardiovascular complaints. Review of Systems Review of Systems: All systems reviewed & are unremarkable except as noted in HPI and below Exam Const: General: comfortable and no acute distress Other: Able to lie flat HENMT: Face/Nose/Sinus: Normal nares present and no epistaxis Mouth: Yes moist mucous membranes Eyes: Sclera: sclerae normal Pupils: Equal, round and reactive pupils present Neck: Neck: supple and no JVD Carotids: no bruits Resp: Auscultation: clear to auscultation bilaterally and lung sounds not diminished Other: No chest wall tenderness Cardio: Rate: regular rate Rhythm: regular rhythm and abnormal rhythm irregularly irregular Heart sounds: no gallops, Murmur heart sound present systolic (Ejection systolic murmur) and no rubs GI: Auscultation: normal bowel sounds Skin: General skin exam: normal color, rashes and/or lesions noted and no erythema Other: Warm Neuro: Cranial nerves: Yes Equal, round and reactive pupils present Speech: normal speech Other: No obvious focal deficit or facial asymmetry Extrem: General: edema (mild bilateral pretibial and pedal edema) Other: Normal capillary refills Intact distal pulses. Objective Data Vital Signs Vital Signs: Vital Signs - 24 hr 04/06/24 11:15 04/06/24 12:00 04/06/24 12:00 Temperature 36.4 C L Pulse Rate 116 H 95 Respiratory Rate 20 Blood Pressure 91/65 L Pulse Oximetry 99 Oxygen Delivery Room Air 04/06/24 15:34 04/06/24 14:00 04/06/24 16:00 Temperature 36.6 C Pulse Rate 114 H 112 H 78 Respiratory Rate 20 Blood Pressure 98/63 L Pulse Oximetry 96 Oxygen Delivery 04/06/24 16:00 04/06/24 17:35 04/06/24 17:36 Temperature Pulse Rate 104 H 104 H Respiratory Rate Blood Pressure Pulse Oximetry Oxygen Delivery Room Air 04/06/24 17:36 04/06/24 18:00 04/06/24 19:55 Temperature Pulse Rate 104 H 105 H 110 H Respiratory Rate Blood Pressure Pulse Oximetry Oxygen Delivery 04/06/24 19:57 04/06/24 20:00 03/21
--- NOTE | 2024-04-07 11:19 | ECG_ITS ---
Test Date: 2024-04-07 12:54:30 Measurements Intervals [place] Rate: 115 P: 51 [place]: 243 QRS: 74 QRSD: 145 T: 6 QT: 374 QTc: 519 Interpretive Statements Probable atrial flutter with rapid ventricular response RIGHT BUNDLE BRANCH BLOCK [120+ ms QRS DURATION, UPRIGHT V1, 40+ ms S IN I/aVL/V4/V5/V6] NONSPECIFIC ST AND T-WAVE ABNORMALITY ABNORMAL ECG Electronically Signed On 04-08-2024 15:13:07 CDT by Jeferson Sprague M.D.
[2024-04-07 11:27] LABS: Glucose Point of Care 104 mg/dl (65-105)
--- NOTE | 2024-04-07 13:12 | PC.NURSE ---
Notified Mariza Rico NP EKG is complete
--- NOTE | 2024-04-07 13:35 | PM.DS ---
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 Status: Acute (4) Hyperlipidemia: Code(s): E78.5 - Hyperlipidemia, unspecified Status: Acute (5) Benign prostatic hyperplasia: Code(s): N40.0 - Benign prostatic hyperplasia without lower urinary tract symptoms Status: Acute (6) Type 2 diabetes mellitus: Code(s): E11.9 - Type 2 diabetes mellitus without complications Status: Acute (7) Obstructive sleep apnea on CPAP: Code(s): G47.33 - Obstructive sleep apnea (adult) (pediatric) Status: Acute DS: Summary Hospital Course Reason for hospitalization: Afib Elevated troponin Chronic anticoagulation Hyperlipidemia BPH Type 2 diabetes EVELIO Hospital Course: 84-year-old male with paroxysmal atrial fibrillation maintained on amiodarone on chronic anticoagulation with apixaban, hyperlipidemia, benign prostatic hyperplasia, type 2 diabetes mellitus, and gout who presented to the emergency department via private vehicle for evaluation of asymptomatic afib RVR. Patient follows a outreach worker in [place]. He states many years ago he had ablations x2 and a cardioversion. Following the cardioversion he was started on amiodarone and the Afib has been well controlled since then. On admission EKG showed atrial flutter/tachycardia with RVR. He had elevated troponins that downtrended during admission. All other labs unremarkable. A consult to cardiology was made. Echo EF 60-65%, grade III diastolic dysfunction, severe aortic valve sclerosis with moderate to severe aortic stenosis, peak velocity of 358 cm/s, mean gradient of 32 mmHg, and aortic valve area of 1.0cm2. Patients amiodarone dosage was increased to 400 mg BID. and he was started on metoprolol 12.5 mg daily. He is to continue the rest of his medications as prescribed. He has an appointment on 04/10 with his outreach worker in [place]. Prior to discharge patient denied chest pain, shortness of breath, palpitations, nausea/vomiting and changes in bowel/bladder. Patient discharged home with family in stable condition. He is to follow up with his cardiology as scheduled on Saturday, 04/10. Status at Discharge Functional status at discharge: independent ambulation Time Spent with Patient Time attestation: Total time spent providing and/or coordinating discharge services: Time spent: Greater than 30 minutes Exam Narrative: AF HR 92 RR 20 SpO2 97 BP 110/69 General: male in no acute respiratory distress who is nontoxic appearing, lying semi recumbent in bed. HEENT: Normocephalic. Atraumatic. Pupils equal round reactive to light. Extraocular movement intact. Sclera clear and anicteric. No facial asymmetry. Chest: Lungs are clear to auscultation bilaterally. No wheezes or crackles. CV: Heart with irregularly irregular rhythm. S1/S2. No murmurs, gallops, or rubs. Abd: Abdomen was soft. Nontender. Nondistended. Positive bowel sounds. No organomegaly or masses. Ext: No clubbing, cyanosis, or edema. 2+ DP pulses bilaterally. Neuro: Patient is alert and oriented x4. Cranial nerves 2-12 are intact. Speech is clear. Psych: Normal mood and affect. Patient is pleasant and cooperative. Skin: Warm and dry. No rashes noted. DS: Data Data Completed and Pending Completed studies during hospitalization: Chest XR Labs on day of discharge: Labs from last 24 hours 04/07/24 04/07/24 04/07/24 11:11 07:15 04:26 WBC 8.2 RBC 4.06 L Hgb 13.0 L Hct 40
== END 2024-04-07 14:49 | disposition home or self-care (01) | DRG 309 ==
LOC: ANHED 10:43 → ANHIMU 13:36
PROVIDERS: Physician Assistant; Student in an Organized Health Care Education/Training Program; Admitting Provider Internal Medicine; Emergency Provider Emergency Medicine; Visit Provider Internal Medicine
DX: I48.0 Paroxysmal atrial fibrillation (principal); I24.89 Other forms of acute ischemic heart disease; E78.5 Hyperlipidemia, unspecified; N40.0 Benign prostatic hyperplasia without lower urinary tract symptoms; G47.33 Obstructive sleep apnea (adult) (pediatric); E11.9 Type 2 diabetes mellitus without complications; I35.0 Nonrheumatic aortic (valve) stenosis; R00.0 Tachycardia, unspecified; M10.9 Gout, unspecified; E66.9 Obesity, unspecified; Z68.33 Body mass index [BMI] 33.0-33.9, adult; Z79.01 Long term (current) use of anticoagulants; Z87.891 Personal history of nicotine dependence; Z96.652 Presence of left artificial knee joint; Z96.641 Presence of right artificial hip joint; Z98.49 Cataract extraction status, unspecified eye
CPT/HCPCS: 36415; 71046; 80048; 80053; 82948; 83036; 83735; 83880; 84443; 84484; 85025; 85610; 85730; 93005; 93306; 99285; A9270; G0378; J0282; J7030